=== PATIENT | male | born 1945 | race Caucasian/White ===

== ENCOUNTER 2017-04-17 22:59 | Emergency (ER) | payer OTHER ==
[2017-04-17 23:11] VITALS: TEMP 95.4
--- NOTE | 2017-04-17 23:13 | EDPHY ---
H & P Stated Complaint: dizziness, feels "off", sx started 2100 HPI/ROS: HPI CHIEF COMPLAINT: Lightheadedness, feeling off HISTORY OF PRESENT ILLNESS: This patient is a very pleasant 71-year-old male, significant past medical history for hypertension, Sjogren's, glaucoma, presents emergency room with sudden onset of feeling lightheadedness or off balance around 9:00 p.m.. Patient states that when he gets up too quickly from a seated position gets often lightheaded but it resolves. States he was getting out of bed after watching TV and got lightheaded. Patient tells me that the lightheadedness has persisted. He denies dizziness, chest pain or shortness of breath, denies headache. Denies neck pain. Denies double vision. He does have some nausea. He states when he goes to walk he feels off balance as if he is going to fall. He denies being pulled 1 way or the other. He denies room spinning sensation denies numbness or tingling or focal weakness anywhere. He took 2 aspirin prior to arrival. The symptoms have persisted since 9 o'clock in her still present. Patient does tell me the lightheadedness does get a little bit worse with head movement. But not in a particular position. No trouble swallowing. Past Medical History: Hypertension, Sjogren's, glaucoma Past Surgical History: No recent surgical history Social History: had a glass of wine this evening denies drugs or daily alcohol, or tobacco, retired Family History: Noncontributory ROS REVIEW OF SYSTEMS: A comprehensive 10 point review of systems is otherwise negative aside from elements mentioned in the history of present illness. Exam Constitutional appears well nontoxic, triage nursing summary reviewed, vital signs reviewed, awake/alert. Eyes normal conjunctivae and sclera, EOMI, PERRLA. HENT normal inspection, atraumatic, moist mucus membranes, no epistaxis, neck supple/ no meningismus, no raccoon eyes. Respiratory clear to auscultation bilaterally, normal breath sounds, no respiratory distress, no wheezing. Cardiovascular rate normal, regular rhythm, no murmur, no edema, distal pulses normal. Gastrointestinal soft, non-tender, no rebound, no guarding, normal bowel sounds, no distension, no pulsatile mass. Genitourinary no CVA tenderness. Musculoskeletal no midline vertebral tenderness, full range of motion, no calf swelling, no tenderness of extremities, no meningismus, good pulses, neurovascularly intact. Skin pink, warm, & dry, no rash, skin atraumatic. Neurologic awake, alert and oriented x 3, AAOx3, moves all 4 extremities equally, motor intact, sensory intact, CN II-XII intact, normal cerebellar, normal vision, normal speech. Normal gait. Nonfocal neurological exam. Psychiatric normal mood/affect. Heme/Lymph/Immune no lymphadenopathy. Differential Diagnosis: Includes but is not limited to in a particular order, vertigo benign positional, peripheral vertigo, central vertigo, posterior circulation stroke, electrolyte disturbance, cardiac arrhythmia, ACS Medical Decision Making: Plan for this patient CT head without contrast, IV fluid bolus, meclizine, check electrolytes and blood work. Re-evaluation: EKG interpretation by me on record in [facility] system. Impression the time of EKG 2333 sinus rhythm left anterior fascicular block present. Q-waves noted in V1 V2 V3 I do not appreciate acute ST elevation or acute ischemia. This EKG when compared to the EKG on 02/07/2015 is similar morphology with the same Q- waves. CT scan of the head without IV contrast The results of the study are negative for acute bleed or infarct. The study was read by Dr. Mejia I viewed the images myself on the PACS system. MRI of the brain w/o The results of the study are negative for acute infarct stroke or bleed. I discussed the results of this study with the radiologist Dr. Cotton 0201: Re-evaluation at this time this patient is resting comfortably no acute distress. Workup is unremarkable including negative CT scan negative MRI, blood work negative troponin nonischemic EKG. Patient has no chest pain or shortness of breath. He feels well. Feels better after oral meclizine. I will prescribe him a prescription for meclizine also refer him to ENT for most likely peripheral vertigo. He does understand return emergency room immediately if he develops worsening symptoms includes chest pain, shortness of breath, dizziness , headache, double vision or any questions or concerns. He is agreeable this plan. at bedside understands well. Source: Patient - Personal History Current Tetanus/Diphtheria Vaccine: Unsure Current Tetanus Diphtheria and Acellular Pertussis (TDAP): Unsure - Medical/Surgical History Hx Asthma: No Hx Chronic Respiratory Disease: No Hx Diabetes: No Hx Cardiac Disease: No Hx Renal Disease: No Hx Cirrhosis: No Hx Alcoholism: No Hx HIV/AIDS: No Hx Splenectomy or Spleen Trauma: No Other PMH: htn, rotator cuff, glaucoma - Social History Smoking Status: Former smoker Constitutional: Initial Vital Signs Temperature (C) 35.2 C L 04/17/17 23:06 Heart Rate 79 04/17/17 23:06 Respiratory Rate 20 04/17/17 23:06 Blood Pressure 162/75 H 04/17/17 23:06 O2 Sat (%) 94 04/17/17 23:06 O2 Delivery Mode Room Air Allergies/Adverse Reactions: No Known Allergies Allergy (Unverified 04/17/17 23:04) Home Medications: Medication Instructions Recorded Latanoprost 0.005% 04/17/17 Losartan Potassium 04/17/17 Pravastatin Sodium 04/17/17 Meclizine HCl [Meclizine HCl 25 mg 25 mg PO BID #10 tab 04/18/17 (RX,OTC)] Medical Decision Making - Diagnostics Imaging Results: Imaging Impressions Chest X-Ray 04/17/17 23:20 Impression: No acute pulmonary disease. Head CT 04/17/17 23:22 Impression: 1. Normal CT brain without contrast. 2. Left maxillary sinusitis. Findings and recommendations discussed with Emergency Department physician, Basilio Thorpe MD at 0:04 hour, 04/18/2017. Final report concurs with initial preliminary interpretation. - Data Points Laboratory Results: Laboratory Results 04/17/17 23:34 04/17/17 23:34 04/17/17 04/17/17 04/17/17 23:34 23:34 23:34 WBC 6.33 10^3/uL 10^3/uL (3.80-9.50) RBC 4.91 10^6/uL 10^6/uL (4.40-6.38) Hgb 15.4 g/dL g/dL (13.7-17.5) Hct 45.5 % % (40.0-51.0) MCV 92.7 fL fL (81.5-99.8) MCH 31.4 pg pg (27.9-34.1) MCHC 33.8 g/dL g/dL (32.4-36.7) RDW 13.2 % % (11.5-15.2) Plt Count 233 10^3/uL 10^3/uL (150-400) MPV 10.0 fL fL (8.7-11.7) Neut % (Auto) 49.4 % % (39.3-74.2) Lymph % (Auto) 33.6 % % (15.0-45.0) Smith % (Auto) 10.9 % % (4.5-13.0) Eos % (Auto) 4.7 % % (0.6-7.6) Baso % (Auto) 1.1 % % (0.3-1.7) Nucleat RBC Rel Count 0.0 % % (0.0-0.2) Absolute Neuts (auto) 3.12 10^3/uL 10^3/uL (1.70-6.50) Absolute Lymphs (auto) 2.13 10^3/uL 10^3/uL (1.00-3.00) Absolute Monos (auto) 0.69 10^3/uL 10^3/uL (0.30-0.80) Absolute Eos (auto) 0.30 10^3/uL 10^3/uL (0.03-0.40) Absolute Basos (auto) 0.07 10^3/uL 10^3/uL (0.02-0.10) Absolute Nucleated RBC 0.00 10^3/uL 10^3/uL (0-0.01) Immature Gran % 0.3 % % (0.0-1.1) Immature Gran # 0.02 10^3/uL 10^3/uL (0.00-0.10) PT 13.0 SEC SEC (12.0-15.0) INR 0.99 (0.83-1.16) APTT 25.0 SEC SEC (23.0-38.0) D-Dimer < 0.27 ug/mLFEU ug/mLFEU (0.00-0.50) Sodium 139 mEq/L mEq/L (134-144) Potassium 3.9 mEq/L mEq/L (3.5-5.2) Chloride 105 mEq/L mEq/L (97-110) Carbon Dioxide 23 mEq/l mEq/l (22-31) Anion Gap 11 mEq/L mEq/L (8-16) BUN 30 mg/dL H mg/dL (7-23) Creatinine 1.3 mg/dL mg/dL (0.7-1.3) Estimated GFR 55 Glucose 111 mg/dL H mg/dL (70-100) Calcium 9.1 mg/dL mg/dL (8.5-10.4) Magnesium 2.3 mg/dL mg/dL (1.6-2.3) Total Bilirubin 0.6 mg/dL mg/dL (0.1-1.4) Conjugated Bilirubin 0.3 mg/dL mg/dL (0.0-0.5) Unconjugated Bilirubin 0.3 mg/dL mg/dL (0.0-1.1) AST 23 IU/L IU/L (17-59) ALT 38 IU/L IU/L (21-72) Alkaline Phosphatase 68 IU/L IU/L (38-126) Creatine Kinase 118 IU/L IU/L (0-224) CK-MB (CK-2) Fraction 0.53 ng/mL ng/mL (0-3.19) Troponin I < 0.012 ng/mL ng/mL (0-0.034) NT-Pro-B Natriuret Pep 36 pg/mL pg/mL (0-125) Total Protein 7.4 g/dL g/dL (6.3-8.2) Albumin 4.4 g/dL g/dL (3.5-5.0) Lipase 102.0 IU/L IU/L (23-300) Departure - Departure Disposition: Home, Routine, Self-Care Clinical Impression: Dizziness Condition: Good Instructions: Vertigo (ED) Additional Instructions: 1. Stay well-hydrated drink lots of fluids. 2. Take meclizine as needed for dizziness. 3. Return emergency room immediately if he develops any worsening symptoms questions concerns. 4. I do recommend he follow up with ENT on outpatient basis. Referrals: DEO SYLVESTER [Primary Care Provider] - As per Instructions Maddison Mendoza MD [Medical Doctor] - As per Instructions Prescriptions: Meclizine HCl [Meclizine HCl 25 mg (RX,OTC)] 25 mg PO BID #10 tab
[2017-04-17] MEDS ORDERED: NS 1,000 ML IV ONE (23:20)
[2017-04-17] MEDS ORDERED: MECLIZINE HCL 25 MG TAB PO ONE (23:21)
[2017-04-17] MEDS ORDERED: ONDANSETRON 4 MG/2 ML VIAL IVP ONE (23:21)
--- NOTE | 2017-04-17 23:36 | CPEKG ---
Heart Rate: 71 RR Interval: 845 P-R Interval: 200 QRSD Interval: 112 QT Interval: 408 QTC Interval: 444 P [place]: 69 QRS [place]: -68 T Wave [place]: 46 EKG Severity - ABNORMAL ECG - EKG Impression: SINUS RHYTHM EKG Impression: LEFT ANTERIOR FASCICULAR BLOCK EKG Impression: ANTERIOR INFARCT, OLD Electronically Signed By: Basilio Thorpe 18-Apr-2017 06:52:36
[2017-04-17 23:42] LABS: % IMMATURE GRANULYOCYTES 0.3 % (0.0-1.1); ABSOLUTE IMMATURE GRANULOCYTES 0.02 10^3/uL (0.00-0.10); ADD DIFF? NO; ADD MORPH? NO; ADD SCAN? NO; ATYPICAL LYMPHOCYTE FLAG 0 (0-99); FRAGMENT RBC FLAG 0 (0-99); HEMATOCRIT 45.5 % (40.0-51.0); HEMOGLOBIN 15.4 g/dL (13.7-17.5); LEFT SHIFT FLG 0 (0-99); LIPEMIA HEMOLYSIS FLAG 90 (0-99); MEAN CELL HEMOGLOBIN 31.4 pg (27.9-34.1); MEAN CELL HEMOGLOBIN CONCENTR. 33.8 g/dL (32.4-36.7); MEAN CELL VOLUME 92.7 fL (81.5-99.8); PLATELET CLUMPS FLAG 0 (0-99); PLATELET COUNT 233 10^3/uL (150-400); RED BLOOD CELL COUNT 4.91 10^6/uL (4.40-6.38); RED CELL DISTRIBUTION WIDTH 13.2 % (11.5-15.2)
[2017-04-18 00:15] LABS: INR 0.99 (0.83-1.16)
[2017-04-18 00:30] LABS: ALANINE AMINOTRANSFERASE 38 IU/L (21-72); ALBUMIN 4.4 g/dL (3.5-5.0); ALKALINE PHOSPHATASE 68 IU/L (38-126); ANION GAP 11 mEq/L (8-16); ASPARTATE AMINOTRANSFERASE 23 IU/L (17-59); BILIRUBIN,TOTAL 0.6 mg/dL (0.1-1.4); BILIRUBIN-CONJUGATED 0.3 mg/dL (0.0-0.5); BILIRUBIN-UNCONJUGATED 0.3 mg/dL (0.0-1.1); CALCIUM 9.1 mg/dL (8.5-10.4); CARBON DIOXIDE 23 mEq/l (22-31); CHLORIDE 105 mEq/L (97-110); CREATININE 1.3 mg/dL (0.7-1.3); GLOMERULAR FILTRATION RATE 55; GLUCOSE 111 mg/dL (70-100); MAGNESIUM 2.3 mg/dL (1.6-2.3); POTASSIUM 3.9 mEq/L (3.5-5.2); SODIUM 139 mEq/L (134-144); TOTAL PROTEIN 7.4 g/dL (6.3-8.2)
[2017-04-18 00:39] LABS: CREATINE KINASE-MB FRACTION 0.53 ng/mL (0-3.19); TROPONIN I < 0.012 ng/mL (0-0.034)
[2017-04-18 02:08] VITALS: BP 153/81; PULSE 68; RESP 14; O2SAT 95
== END 2017-04-18 02:13 | disposition home or self-care (01) ==
DX: R42 Dizziness and giddiness (principal); I10 Essential (primary) hypertension; Z87.891 Personal history of nicotine dependence
CPT/HCPCS: 70450; 70551; 71020; 93005; 96361; 96374; 99285; J2405